=== PATIENT | female | born 1975 | race African-American/Black ===

== ENCOUNTER 2018-05-20 13:54 | Emergency (ER) | payer MEDICAID ==
[~2018-05-20] VITALS: Ht 170.2 cm; Wt 61.4 kg
[2018-05-20 14:07] VITALS: Ht 170.2 cm; Wt 61.4 kg
[2018-05-20] MEDS ORDERED: MEDROL DOSE PACK4 MG PO (14:50)
[2018-05-20 15:01] VITALS: BP 142/92
== END 2018-05-20 15:02 | disposition home or self-care (01) ==
LOC: D.ER 13:54
DX: M25.461 Effusion, right knee (principal)

== ENCOUNTER 2018-12-07 11:06 | Emergency (ER) | payer SELFPAY ==
[~2018-12-07] VITALS: Ht 170.2 cm; Wt 61.4 kg
[~2018-12-07 11:06] MED LIST: MEDROL DOSE PACK4 MG PO
[2018-12-07 12:02] VITALS: Ht 170.2 cm; Wt 61.4 kg
[2018-12-07 12:37] LABS: APPEARANCE CLEAR (CLEAR); BACTERIA MODERATE /hpf (NONE SEEN); BILIRUBIN NEGATIVE (NEGATIVE); COLOR YELLOW (YELLOW); EPITHELIAL CELLS 0-5 /hpf (0-5); GLUCOSE NEGATIVE (NEGATIVE); KETONE NEGATIVE (NEGATIVE); NITRITE NEGATIVE (NEGATIVE); PROTEIN NEGATIVE (NEGATIVE); RED CELLS - URINE 0-5 /hpf (0-5); SPECIFIC GRAVITY 1.015 (1.005-1.020); UROBILINOGEN NORMAL (NORMAL); WHITE CELLS - URINE 0-5 /hpf (0-5)
[2018-12-07 12:38] LABS: MUCUS <1+ /lpf (NONE SEEN)
[2018-12-07] MEDS ORDERED: VOLTAREN75 MG PO (15:10)
[2018-12-07] MEDS ORDERED: ROBAXIN500 MG PO (15:10)
[2018-12-07] MEDS ORDERED: FLAGYL500 MG PO (15:14)
[2018-12-07 15:42] VITALS: BP 110/62
== END 2018-12-07 15:44 | disposition home or self-care (01) ==
LOC: D.ER 11:06
PROVIDERS: Family Medicine
DX: M54.6 Pain in thoracic spine (principal); M62.830 Muscle spasm of back

== ENCOUNTER 2019-02-04 03:54 | Inpatient (IN) | payer MEDICAID ==
[2019-02-04] VITALS (9 sets, daily range): BP systolic 127–155; BP diastolic 87–104; Ht 170.2 cm; Wt 56.8 kg
[~2019-02-04] VITALS: Ht 170.2 cm; Wt 56.8 kg
[~2019-02-04 03:54] MED LIST changes: +FLAGYL500 MG PO; +ROBAXIN500 MG PO; +VOLTAREN75 MG PO
--- NOTE | 2019-02-04 04:45 | NUR ---
RN AND RADIOLOGY TOOK PT TO CT VIA STRETCHER.
[2019-02-04 04:46] LABS: APPEARANCE CLEAR (CLEAR); BILIRUBIN NEGATIVE (NEGATIVE); COLOR YELLOW (YELLOW); GLUCOSE NEGATIVE (NEGATIVE); KETONE NEGATIVE (NEGATIVE); NITRITE NEGATIVE (NEGATIVE); PROTEIN NEGATIVE (NEGATIVE); UROBILINOGEN NORMAL (NORMAL)
[2019-02-04 04:51] LABS: BASOPHILS 0.2 % (0-2); EOSINOPHILS 4.3 % (0-7); HEMATOCRIT 32.5 % (36.0-48.0); HEMOGLOBIN 10.1 g/dL (12-16); IMMATURE GRANULOCYTES 0.2 % (0-5); LYMPHOCYTES 19.9 % (15-50); MCH 28.7 pg (26.0-34.0); MCHC 31.1 g/dL (31.0-37.0); MCV 92.3 fL (80.0-100.0); MEAN PLATELET VOLUME 9.4 fL (7.4-10.4); NEUTROPHILS 58.4 % (40-80); PLATELET COUNT 203 10x3/uL (130-400); RBC 3.52 10x6/uL (4.00-5.40); RDW 14.5 % (11.5-14.5); WBC 4.8 10x3/uL (4.8-10.8)
[2019-02-04 04:54] LABS: UDS - AMPHET NEGATIVE QUAL (NEGATIVE); UDS - BARB NEGATIVE QUAL (NEGATIVE); UDS - BENZO NEGATIVE QUAL (NEGATIVE); UDS - COCAINE NEGATIVE QUAL (NEGATIVE); UDS - OPIATE NEGATIVE QUAL (NEGATIVE); UDS - PCP NEGATIVE QUAL (NEGATIVE); UDS - THC NEGATIVE QUAL (NEGATIVE)
[2019-02-04 05:07] LABS: ALBUMIN 3.7 g/dL (3.4-5.0); ANION GAP 14.6 mmol/L (8-16); BILIRUBIN - TOTAL 0.14 mg/dL (0.2-1.3); CALCIUM 8.2 mg/dL (8.5-10.1); CARBON DIOXIDE 23.4 mmol/L (21.0-32.0); CREATININE - SERUM 0.9 mg/dL (0.6-1.3); MAGNESIUM - SERUM 1.8 mg/dL (1.8-2.4); PROTEIN - SERUM 7.6 g/dL (6.4-8.2)
--- NOTE | 2019-02-04 05:15 | NUR ---
LAC REPAIR PERFORMED BY OJ PAREDES RN AND FAMILY AT BEDSIDE. PT TOLERATED WELL.
--- NOTE | 2019-02-04 05:34 | NUR ---
NS INFUSION STOPPED AND REPLACED WITH ORDER FOR NS KCL PER EDP FINNEGAN.
--- NOTE | 2019-02-04 08:02 | NUR ---
PT RESTING IN BED. NO SIGNS OF DISTRESS. IV TO LEFT AC PATENT NO REDNESS OR TENDERNESS. HAS LACERATION TO LEFT FORHEAD HAD 5 SUTURES. FRACTURE TO LEFT HIP. COMPLAINS OF PAIN. MEDICATIONS GIVEN. AWAITING TO HAVE SURGERY THIS AFTERNOON. HAS CM PATENT NO KINKS. PT HAS SLIGHT SLURRING OF SPEECH. DENIES ANY NEED AT THIS TIME. CALL LIGHT IN REACH. BED LOW POSITION. FAMILY AT BEDSIDE.
[2019-02-04 14:05] LABS: % SATURATION 5 % (15-55); IRON 20 ug/dl (35-150); TOTAL IRON BIND CAPACITY 387 ug/dl (260-445); UNSAT IRON BIND CAPACITY 367 ug/dl (150-375)
--- NOTE | 2019-02-04 16:14 | NUR ---
CONSULTED ANESTHESIA REGARDING ELEVATED BLOOD PRESSURE OF 154/102. NO NEW ORDERS RECEIVED. PATIENT'S BLOOD PRESSURE IS AT BASELINE. WILL CONTINUE TO MONITOR.
--- NOTE | 2019-02-04 17:36 | NUR ---
I have reviewed this patient and I concur with the Shift Assessment completed by the Licensed Practical Nurse today this shift.
[2019-02-05] VITALS: BP 131/79
--- NOTE | 2019-02-05 00:45 | NUR ---
REPORTS PAIN TO LLE 05/05. DRESSING TO LEFT HIP C/D/I. STATES LAST PAIN MED HELPED, BUT WORE OFF. PERIPHERAL PULSES PALPABLE. FAMILY AT BEDSIDE. WILL CONTINUE TO MONITOR.
[2019-02-05 03:00] VITALS: BP 129/86
--- NOTE | 2019-02-05 05:31 | NUR ---
I have reviewed this patient and I concur with the Shift Assessment completed by the Licensed Practical Nurse today this shift.
[2019-02-05 05:43] LABS: BASOPHILS 0 % (0-2); EOSINOPHILS 0 % (0-7); HEMATOCRIT 27.5 % (36.0-48.0); HEMOGLOBIN 9.3 g/dL (12-16); IMMATURE GRANULOCYTES 0.2 % (0-5); LYMPHOCYTES 7.8 % (15-50); MCH 30.6 pg (26.0-34.0); MCHC 33.8 g/dL (31.0-37.0); MCV 90.5 fL (80.0-100.0); MEAN PLATELET VOLUME 9.4 fL (7.4-10.4); PLATELET COUNT 192 10x3/uL (130-400); RBC 3.04 10x6/uL (4.00-5.40); RDW 15.1 % (11.5-14.5)
[2019-02-05 05:54] LABS: CALC OSMOLALITY 273 mosm/kg (275-300); CALCIUM 8.4 mg/dL (8.5-10.1); CARBON DIOXIDE 25.7 mmol/L (21.0-32.0); CHLORIDE - SERUM 103 mmol/L (98-107); CREATININE - SERUM 0.8 mg/dL (0.6-1.3); GLUCOSE 127 mg/dL (74-106); MAGNESIUM - SERUM 1.6 mg/dL (1.8-2.4); SODIUM 137 mmol/L (136-145); UREA NITROGEN 7 mg/dL (7-18); eGFR NON AFRICAN AMERICAN 83 mL/min (90-120)
[2019-02-05 05:56] LABS: WBC 10.3 10x3/uL (4.8-10.8)
[2019-02-05 06:02] LABS: POTASSIUM - SERUM 4.2 mmol/L (3.5-5.1)
--- NOTE | 2019-02-05 07:54 | OP ---
PATIENT NAME: BASILIA LAM MEDICAL RECORD: [id number] :77 LOCATION:D.MS [id number] ADMISSION DATE:02/04/19 SURGEON: BENNIE URIAS DO DATE OF OPERATION: 02/04/2019 PROCEDURE PERFORMED: Left hip intramedullary nailing. PREOPERATIVE DIAGNOSIS: Left hip intertrochanteric fracture. POSTOPERATIVE DIAGNOSIS: Left hip intertrochanteric fracture. INDICATION: Ms. Lam is a 43-year-old female who fell last night sometime and sustained a hip fracture. The patient was taken to the ER. She could not ambulate. Her leg was shortened and externally rotated. X-rays were taken and showed comminuted intertrochanteric left hip fracture and she was admitted. She was intoxicated at that time, and when she sobered up, I decided to do an intertrochanteric hip nailing on her. She will walk right away on it and provide good stability and fracture fixation. I informed her of risks and benefits of the procedure including infection, bleeding, damage to nerves and vessels, need for further surgery, nonunion, malunion; and she was okay with that. SURGEON: Bennie Urias DO DESCRIPTION OF PROCEDURE: The patient was given a block by anesthesia in the preoperative area, taken to the operative suite, laid in supine position, sedated, and LMA was placed. The patient was then placed on the [place] table. Left hip was then reduced and then prepped and draped in sterile fashion. A time-out was performed. Everyone was in agreeance with correct side, site, patient, and procedure. She was given 2 grams of Ancef preoperatively. The starting point was made with incision just superior or proximal to the trochanter. Once the starting pin was put in the correct position, the starting reamer was taken over it. The 9 nail was then put down the canal and the lag screw was put in through the guide. Once the pin was in good position on AP and lateral, it was measured to be an 85 and then drilled and then a 10.5 x 85 lag screw was put in. Then, a 75 antirotational screw was put in above that. This was then locked and then a distal 5.0 x 32-mm cortical screw was put in through the static hole. The sites were then irrigated. The patient was closed; IT band with #1 Vicryl in a evxjda-ng-oncze fashion at the most superior incision and then the rest of the incisions. Three poke holes were closed with 2-0 Vicryl in inverted interrupted fashion, 4-0 Monocryl on the skin, and then Prineo placed on the skin. She was awakened and taken to recovery in stable condition. BLOOD LOSS: Approximately 100 mL. COMPLICATIONS: None. TRANSINT:[id number] Voice Confirmation ID: [id number] DOCUMENT ID: [id number] OPERATIVE REPORT [id number] BASILIA LAM,BENNIE Ma DO at 0754 CC: [id number] DICTATION DATE: 02/04/19 1514 DYE JIG OPERATOR: 02/04/19 1659 ADM IN [facility] [address] [place] [address]
--- NOTE | 2019-02-05 08:30 | NUR ---
PATIENT IN BED WITH NO COMPLAINTS OR SIGNS OF DISTRESS. IV INTACT. CALL LIGHT WITHIN REACH.
[2019-02-05 09:10] VITALS: BP 142/89
[2019-02-05 13:33] VITALS: BP 134/89
--- NOTE | 2019-02-05 14:24 | NUR ---
CALLED DR. URIAS FOR NICOTINE PATCH AND IV OUT. LEFT VOICEMAIL. WILL CALL BACK LATER IF NO ANSWER.
--- NOTE | 2019-02-05 15:30 | NUR ---
SPOKE WITH DR. URIAS. NO NICOTINE PATCH AND OK TO LEAVE IV OUT FOR NOW UNLESS MORE ANTIBIOTICS NEEDED. CHANGE IRON TO PO.
--- NOTE | 2019-02-05 16:34 | MORECARE ---
CASE MANAGEMENT DISCHARGE SUMMARY PATIENT: BASILIA LAM UNIT: [id number] ADM DATE: 02/04/19 AGE: 43 : 76 SEX: F ROOM/BED: D.2227 AUTHOR: KEON FIELDS PHYSICIAN: REFERRING PHYSICIAN: ALMA WEST MD DATE OF SERVICE: 02/05/19 Discharge Plan Patient Name: BASILIA LAM Facility: [facility]:[place] : 1975 Planned Disposition: Home Anticipated Discharge Date: Discharge Date: Expected LOS: Initial Reviewer: [email or web address] Initial Review Date: 02/04/2019 Generated: 02/05/19 5:33 pm Patient Name: BASILIA LAM Page [id number] at 1634 All edits/amendments must be made on the electronic document DICTATION DATE: 02/05/191632 COMMUNICATIONS DEPARTMENT CHAIR: TIFFANIE 02/05/19 163 RPT#: [id number] DC DATE: STATUS: ADM IN [facility] [address] [place] [address] END OF REPORT
--- NOTE | 2019-02-05 16:43 | MORECARE ---
CASE MANAGEMENT DISCHARGE SUMMARY PATIENT: BASILIA LAM UNIT: [id number] ADM DATE: 02/04/19 AGE: 43 : 76 SEX: F ROOM/BED: D.2227 AUTHOR: KEON FIELDS PHYSICIAN: REFERRING PHYSICIAN: ALMA WEST MD DATE OF SERVICE: 02/05/19 Discharge Plan Patient Name: BASILIA LAM Facility: [facility]:[place] : 1975 Planned Disposition: Home Anticipated Discharge Date: Discharge Date: Expected LOS: Initial Reviewer: [email or web address] Initial Review Date: 02/04/2019 Generated: 02/05/19 5:43 pm Comments DCP- Discharge Planning Updated by [email or web address]: Niyah Romo on 02/05/19 3:[address] Patient Name: BASILIA LAM Admission Status: ER Accout number: [id number] Admission Date: 02-04-2019 : 1975 Admission Diagnosis: Attending: ALMA WEST Current LOS: 1 Anticipated DC Date: Planned Disposition: Home Primary Insurance: MEDICAID [place] PENDING Discharge Planning Comments: CM met with patient to complete initial dc planning assessment. CM educated patient on the CM role and verbal consent given by patient to complete assessment. Patient lives at home alone. At discharge patient plans to return and feels this is a safe discharge. She states that her brother will stay with her after discharge and drive her home. CM discussed availability of home health, rehab services, and medical equipment. She is uninsured with Medicaid pending. I informed her that she should get a walker for stability with ambulation. I informed her to have her brother or friend check [employer] or [employer] for a used walker. They can also purchase one at [employer] for about 40 dollars. Patient denied known discharge needs at this time. CM will continue to follow and will assist as needed with dc plans/needs. Computer Recycling Worker: Niyah Romo DCPIA - Discharge Planning Initial Assessment Updated by [email or web address]: Niyah Romo on 02/05/19 4:34 pm * Is the patient Alert and Oriented? Yes * How many steps to enter\exit or inside your home? 10/0 * PCP None * Pharmacy [facility] on [address] * Preadmission Environment Home Alone * ADLs Independent * Equipment None * List name and contact numbers for known caregivers / representatives who currently or will assist patient after discharge: Juan Deng - - [phone] * Verbal permission to speak to the caregivers and representatives has been obtained from the patient. Yes * Community resources currently utilized None * Additional services required to return to the preadmission environment? No * Can the patient safely return to the preadmission environment? Yes * Has this patient been hospitalized within the prior 30 days at any hospital? No Last DP export: 02/05/19 3:34 p Patient Name: BASILIA LAM Page [id number] at 1643 All edits/amendments must be made on the electronic document DICTATION DATE: 02/05/191642 FULL STACK JAVA DEVELOPER: TIFFANIE 02/05/191642 RPT#: [id number] DC DATE: STATUS: ADM IN [facility] [address] [place] [address] END OF REPORT
[2019-02-05 16:49] VITALS: BP 135/93
--- NOTE | 2019-02-05 17:46 | NUR ---
PATIENT IN BED EATING WITH NO COMPLAINTS AT THIS TIME. CALL LIGHT WITHIN REACH.
[2019-02-05 18:00] VITALS: BP 136/87
[2019-02-06 01:06] VITALS: BP 117/88
--- NOTE | 2019-02-06 03:47 | NUR ---
RESTING ON LEFT SIDE RESPRATIONS EVEN NAD UNLABORED CALL LIGHT IN REACH.
[2019-02-06 05:07] LABS: BASOPHILS 0.1 % (0-2); EOSINOPHILS 0.5 % (0-7); HEMATOCRIT 26.9 % (36.0-48.0); HEMOGLOBIN 9.1 g/dL (12-16); IMMATURE GRANULOCYTES 0.3 % (0-5); LYMPHOCYTES 17.6 % (15-50); MCH 30.5 pg (26.0-34.0); MCHC 33.8 g/dL (31.0-37.0); MCV 90.3 fL (80.0-100.0); MEAN PLATELET VOLUME 9.2 fL (7.4-10.4); MONOCYTES 9.4 % (2-11); NEUTROPHILS 72.1 % (40-80); PLATELET COUNT 186 10x3/uL (130-400); RBC 2.98 10x6/uL (4.00-5.40); RDW 15.1 % (11.5-14.5)
[2019-02-06 05:16] LABS: WBC 7.4 10x3/uL (4.8-10.8)
[2019-02-06 05:22] LABS: CALCIUM 8.4 mg/dL (8.5-10.1); CHLORIDE - SERUM 103 mmol/L (98-107); CREATININE - SERUM 0.7 mg/dL (0.6-1.3); GLUCOSE 96 mg/dL (74-106); MAGNESIUM - SERUM 1.9 mg/dL (1.8-2.4); SODIUM 138 mmol/L (136-145); eGFR NON AFRICAN AMERICAN > 90 mL/min (90-120)
[2019-02-06 05:25] LABS: CALC OSMOLALITY 272 mosm/kg (275-300); POTASSIUM - SERUM 3.4 mmol/L (3.5-5.1); UREA NITROGEN 5 mg/dL (7-18)
[2019-02-06 05:56] VITALS: BP 117/89
--- NOTE | 2019-02-06 08:00 | NUR ---
PATIENT IN BED WITH NO COMPLAINTS OR SIGNS OF DISTRESS. CM INTACT. FAMILY AT BEDSIDE. CALL LIGHT WITHIN REACH.
[2019-02-06 09:13] VITALS: BP 146/83
[2019-02-06 10:16] LABS: FOLATE (FOLIC ACID) - SERUM 9.1 ng/mL (>3.0)
[2019-02-06 12:00] VITALS: BP 104/65
--- NOTE | 2019-02-06 14:15 | NUR ---
SPOKE WITH YAEL FROM PT ABOUT PATIENT GETTING UP AGAIN. EXPLAINED I GAVE HER MORE PAIN MEDS SO SHE WILL BE READY. STATED HE WOULD GET HER UP.
--- NOTE | 2019-02-06 16:30 | NUR ---
PATIENT CM REMOVED AT THIS TIME.
--- NOTE | 2019-02-06 18:37 | NUR ---
PATIENT IN BED WITH NO COMPLAINTS OR SIGNS OF DISTRESS. BSCDS OFF AT THIS TIME. CALL LIGHT WITHIN REACH.
[2019-02-06 21:14] VITALS: BP 107/72
[2019-02-07 01:40] VITALS: BP 117/81
[2019-02-07 05:02] VITALS: BP 124/74
[2019-02-07 06:32] LABS: BASOPHILS 0 % (0-2); EOSINOPHILS 1.5 % (0-7); HEMATOCRIT 27.8 % (36.0-48.0); HEMOGLOBIN 9.4 g/dL (12-16); IMMATURE GRANULOCYTES 0.2 % (0-5); LYMPHOCYTES 27.2 % (15-50); MCH 30.3 pg (26.0-34.0); MCHC 33.8 g/dL (31.0-37.0); MCV 89.7 fL (80.0-100.0); MEAN PLATELET VOLUME 8.8 fL (7.4-10.4); MONOCYTES 10.9 % (2-11); NEUTROPHILS 60.2 % (40-80); PLATELET COUNT 176 10x3/uL (130-400); RDW 15.1 % (11.5-14.5); WBC 6.1 10x3/uL (4.8-10.8)
[2019-02-07 07:12] LABS: CALC OSMOLALITY 269 mosm/kg (275-300); CALCIUM 8.8 mg/dL (8.5-10.1); CARBON DIOXIDE 26.8 mmol/L (21.0-32.0); CHLORIDE - SERUM 102 mmol/L (98-107); CREATININE - SERUM 0.7 mg/dL (0.6-1.3); GLUCOSE 92 mg/dL (74-106); POTASSIUM - SERUM 3.8 mmol/L (3.5-5.1); SODIUM 136 mmol/L (136-145); UREA NITROGEN 6 mg/dL (7-18); eGFR NON AFRICAN AMERICAN > 90 mL/min (90-120)
--- NOTE | 2019-02-07 07:54 | NUR ---
PT C/O PAIN AT A 9 IN HIPS. ADMINISTERED PRN PAIN MEDICATION WITH MORNING MEDS. CONTINUE WITH PLAN OF CARE
[2019-02-07 08:53] VITALS: BP 132/66
[2019-02-07] MEDS ORDERED: ELIQUIS2.5 MG PO (10:30)
[2019-02-07] MEDS ORDERED: FERROUS SULFAT325 MG PO (10:31)
[2019-02-07] MEDS ORDERED: PROTONIX40 MG PO (10:31)
[2019-02-07] MEDS ORDERED: Senokot-S Tablet PO (10:32)
--- NOTE | 2019-02-07 10:41 | NUR ---
PT UP WITH PT TO DOOR AND BACK, CHANGED PT DRESING. PT STATED SHE IS MORE SORE THAN IN PAIN, NO NEEDS VOICED, BED IN LOWEST POSITION CONTINUE WITH PLAN OF CARE
[2019-02-07 12:00] VITALS: BP 108/84
--- NOTE | 2019-02-07 12:03 | MORECARE ---
CASE MANAGEMENT DISCHARGE SUMMARY PATIENT: BASILIA LAM UNIT: [id number] ADM DATE: 02/04/19 AGE: 43 : 77 SEX: F ROOM/BED: D.2227 AUTHOR: KEON FIELDS PHYSICIAN: REFERRING PHYSICIAN: ALMA WEST MD DATE OF SERVICE: 02/07/19 Discharge Plan Patient Name: BASILIA LAM Facility: [facility]:[place] : 1975 Planned Disposition: Home Anticipated Discharge Date: Discharge Date: Expected LOS: Initial Reviewer: [email or web address] Initial Review Date: 02/04/2019 Generated: 02/07/19 1:02 pm Comments DCP- Discharge Planning Updated by [email or web address]: Niyah Romo on 02/07/19 11:[address] Discharge order received. I asked if she has a walker. She is going to call her brother to get her one. I will check back with her to see if she has gotten her walker. She denies other needs. CM will continue to follow and assist with discharge planning/needs. DCP- Discharge Planning Updated by [email or web address]: Niyah Romo on 02/05/19 3:[address] Patient Name: BASILIA LAM Admission Status: ER Accout number: [id number] Admission Date: 02-04-2019 : 1975 Admission Diagnosis: Attending: ALMA WEST Current LOS: 1 Anticipated DC Date: Planned Disposition: Home Primary Insurance: MEDICAID [place] PENDING Discharge Planning Comments: CM met with patient to complete initial dc planning assessment. CM educated patient on the CM role and verbal consent given by patient to complete assessment. Patient lives at home alone. At discharge patient plans to return and feels this is a safe discharge. She states that her brother will stay with her after discharge and drive her home. CM discussed availability of home health, rehab services, and medical equipment. She is uninsured with Medicaid pending. I informed her that she should get a walker for stability with ambulation. I informed her to have her brother or friend check [employer] or [employer] for a used walker. They can also purchase one at [employer] for about 40 dollars. Patient denied known discharge needs at this time. CM will continue to follow and will assist as needed with dc plans/needs. Human Resources District Manager: Niyah Romo DCPIA - Discharge Planning Initial Assessment Updated by [email or web address]: Niyah Romo on 02/05/19 4:34 pm * Is the patient Alert and Oriented? Yes * How many steps to enter\exit or inside your home? 10/0 * PCP None * Pharmacy [facility] [address] [facility] [address] * Preadmission Environment Home Alone * ADLs Independent * Equipment None * List name and contact numbers for known caregivers / representatives who currently or will assist patient after discharge: Juan Deng [facility] - [phone] * Verbal permission to speak to the caregivers and representatives has been obtained from the patient. Yes * Community resources currently utilized None * Additional services required to return to the preadmission environment? No * Can the patient safely return to the preadmission environment? Yes * Has this patient been hospitalized within the prior 30 days at any hospital? No Last DP export: 02/05/19 3:43 p Patient Name: BASILIA LAM Page [phone] at 1203 All edits/amendments must be made on the electronic document DICTATION DATE: 02/07/191201 TARIFF PUBLISHING AGENT: TIFFANIE 02/07/191201 RPT#: [id number] DC DATE: STATUS: ADM IN [facility] [address] [place] [address] END OF REPORT
[2019-02-07] MEDS ORDERED: VISTARIL50 MG PO ×2 (13:14→14:02)
[2019-02-07] MEDS ORDERED: OXYCODONE HCL5 M1 PO ×2 (13:14→14:03)
--- NOTE | 2019-02-07 14:13 | NUR ---
PT UP AT BEDSIDE. PT IS TO DC HOME. FAMILY AT BEDSIDE
--- NOTE | 2019-02-07 14:18 | MORECARE ---
CASE MANAGEMENT DISCHARGE SUMMARY PATIENT: BASILIA LAM UNIT: [id number] ADM DATE: 02/04/19 AGE: 43 : 77 SEX: F ROOM/BED: D.2227 AUTHOR: KEON FIELDS PHYSICIAN: REFERRING PHYSICIAN: ALMA WEST MD DATE OF SERVICE: 02/07/19 Discharge Plan Patient Name: BASILIA LAM Facility: [facility]:[place] : 1975 Planned Disposition: Home Anticipated Discharge Date: Discharge Date: Expected LOS: Initial Reviewer: [email or web address] Initial Review Date: 02/04/2019 Generated: 02/07/19 3:18 pm Comments DCP- Discharge Planning Updated by [email or web address]: Niyah Romo on 02/07/19 1:[address] Family is here and have brought her walker. CM will continue to follow and assist with discharge planning/needs. DCP- Discharge Planning Updated by [email or web address]: Niyah Romo on 02/07/19 11:[address] Discharge order received. I asked if she has a walker. She is going to call her brother to get her one. I will check back with her to see if she has gotten her walker. She denies other needs. CM will continue to follow and assist with discharge planning/needs. DCP- Discharge Planning Updated by [email or web address]: Niyah Romo on 02/05/19 3:[address] Patient Name: BASILIA LAM Admission Status: ER Accout number: [id number] Admission Date: 02-04-2019 : 1975 Admission Diagnosis: Attending: ALMA WEST Current LOS: 1 Anticipated DC Date: Planned Disposition: Home Primary Insurance: MEDICAID [place] PENDING Discharge Planning Comments: CM met with patient to complete initial dc planning assessment. CM educated patient on the CM role and verbal consent given by patient to complete assessment. Patient lives at home alone. At discharge patient plans to return and feels this is a safe discharge. She states that her brother will stay with her after discharge and drive her home. CM discussed availability of home health, rehab services, and medical equipment. She is uninsured with Medicaid pending. I informed her that she should get a walker for stability with ambulation. I informed her to have her brother or friend check [facility] for [employer] or [employer] for a used walker. They can also purchase one [facility] dollars. Patient denied known discharge needs at this time. CM will continue to follow and will assist as needed with dc plans/needs. Telemetry Nurse: Niyah Romo DCPIA - Discharge Planning Initial Assessment Updated by [id number]: Niyah Clarissa on 02/05/19 4:34 pm * Is the patient Alert and Oriented? Yes * How many steps to enter\exit or inside your home? 100 * PCP None * Pharmacy [facility] [address] * Preadmission Environment Home Alone * ADLs Independent * Equipment None * List name and contact numbers for known caregivers / representatives who currently or will assist patient after discharge: Juan do - [phone] * Verbal permission to speak to the caregivers and representatives has been obtained from the patient. Yes * Community resources currently utilized None * Additional services required to return to the preadmission environment? No * Can the patient safely return to the preadmission environment? Yes * Has this patient been hospitalized within the prior 30 days at any hospital? No Last DP export: 02/07/19 11:02 a Patient Name: BASILIA LAM Page [phone] at 1418 All edits/amendments must be made on the electronic document DICTATION DATE: 02/07/191416 BAG MACHINE HELPER: TIFFANIE 02/07/191416 RPT#: [id number] DC DATE: STATUS: ADM IN [facility] [address] [place] [address] END OF REPORT
== END 2019-02-07 15:24 | disposition home or self-care (01) | DRG 481 ==
LOC: D.ER 03:54 → D.MS 04:17
PROVIDERS: Family Medicine; Orthopaedic Surgery; ADMIT Internal Medicine Nephrology; ATTEND Internal Medicine Nephrology
PROC: 0QH706Z Insertion of Intramedullary Internal Fixation Device into Left Upper Femur, Open Approach (ICD-10-PCS; principal; 2019-02-04 13:30)
DX: S72.142A Displaced intertrochanteric fracture of left femur, initial encounter for closed fracture (principal); F17.213 Nicotine dependence, cigarettes, with withdrawal; W19.XXXA Unspecified fall, initial encounter; F10.229 Alcohol dependence with intoxication, unspecified; E87.6 Hypokalemia; D64.9 Anemia, unspecified

== ENCOUNTER 2019-03-17 03:34 | Inpatient (IN) | payer MEDICAID ==
[2019-03-17] VITALS (8 sets, daily range): BP systolic 108–130; BP diastolic 70–88; BMI 20.4
[~2019-03-17] VITALS: Ht 170.2 cm; Wt 59.0 kg
[~2019-03-17 03:34] MED LIST changes: +ELIQUIS2.5 MG PO; +FERROUS SULFAT325 MG PO; +OXYCODONE HCL5 M1 PO; +PROTONIX40 MG PO; +Senokot-S Tablet PO; +VISTARIL50 MG PO
--- NOTE | 2019-03-17 03:45 | NUR ---
PT AMBULATED TO RESTROOM USING WALKER.
[2019-03-17 04:04] LABS: BASOPHILS 0.1 % (0-2); EOSINOPHILS 1.6 % (0-7); HEMATOCRIT 31.1 % (36.0-48.0); HEMOGLOBIN 10.8 g/dL (12-16); IMMATURE GRANULOCYTES 0.1 % (0-5); LYMPHOCYTES 25.5 % (15-50); MCHC 34.7 g/dL (31.0-37.0); MCV 89.4 fL (80.0-100.0); MEAN PLATELET VOLUME 9.3 fL (7.4-10.4); MONOCYTES 8.4 % (2-11); NEUTROPHILS 64.3 % (40-80); PLATELET COUNT 189 10x3/uL (130-400); RBC 3.48 10x6/uL (4.00-5.40); RDW 14.9 % (11.5-14.5); WBC 6.9 10x3/uL (4.8-10.8)
[2019-03-17 04:09] LABS: HCG URINE NEGATIVE (NEGATIVE)
[2019-03-17 04:10] LABS: APPEARANCE CLOUDY (CLEAR); BILIRUBIN NEGATIVE (NEGATIVE); COLOR YELLOW (YELLOW); GLUCOSE NEGATIVE (NEGATIVE); KETONE NEGATIVE (NEGATIVE); NITRITE NEGATIVE (NEGATIVE); PROTEIN TRACE mg/dL (NEGATIVE); SPECIFIC GRAVITY 1.025 (1.005-1.020); UROBILINOGEN NORMAL (NORMAL)
[2019-03-17 04:11] LABS: BACTERIA MODERATE /hpf (NONE SEEN); EPITHELIAL CELLS RARE /hpf (0-5); RED CELLS - URINE 0-5 /hpf (0-5)
--- NOTE | 2019-03-17 04:17 | NUR ---
PT GIVEN BLANKET, DENIES ANY FURTHER NEEDS AT THIS TIME. WILL CONTINUE TO MONITOR.
[2019-03-17 04:20] LABS: ALBUMIN 3.6 g/dL (3.4-5.0); ALKALINE PHOSPHATASE 93 U/L (46-116); ALT (SGPT) 14 U/L (10-68); BILIRUBIN - TOTAL 0.48 mg/dL (0.2-1.3); CALC OSMOLALITY 275 mosm/kg (275-300); CALCIUM 8.9 mg/dL (8.5-10.1); CARBON DIOXIDE 27.2 mmol/L (21.0-32.0); CHLORIDE - SERUM 103 mmol/L (98-107); CREATININE - SERUM 0.8 mg/dL (0.6-1.3); GLUCOSE 100 mg/dL (74-106); POTASSIUM - SERUM 3.5 mmol/L (3.5-5.1); PROTEIN - SERUM 8.1 g/dL (6.4-8.2); SODIUM 139 mmol/L (136-145); UREA NITROGEN 8 mg/dL (7-18); eGFR NON AFRICAN AMERICAN 83 mL/min (90-120)
[2019-03-17 04:26] LABS: UDS - AMPHET NEGATIVE QUAL (NEGATIVE); UDS - BARB NEGATIVE QUAL (NEGATIVE); UDS - BENZO NEGATIVE QUAL (NEGATIVE); UDS - COCAINE NEGATIVE QUAL (NEGATIVE); UDS - OPIATE NEGATIVE QUAL (NEGATIVE); UDS - PCP NEGATIVE QUAL (NEGATIVE); UDS - THC NEGATIVE QUAL (NEGATIVE)
--- NOTE | 2019-03-17 05:34 | NUR ---
PT TO RADIOLOGY.
--- NOTE | 2019-03-17 05:49 | NUR ---
PT RETURNED FROM RADIOLOGY.
--- NOTE | 2019-03-17 07:00 | NUR ---
PT WEIGHT 121.[address] DELEON.
--- NOTE | 2019-03-17 09:18 | NUR ---
NEW ADMIT FROM ER. BECKFORD TO ROOM. CALL LIGHT IN REACJ. WILL CONT. PLAN OF CARE.
--- NOTE | 2019-03-17 09:37 | NUR ---
PT ARRIVED VIA WHEELCHAIR, UP AD ALBERTO. PT IS PLESANT, NO REPORTED PAIN AT THIS TIME, OR SIGNS/SYMPTOMS OF DISTRESS. PT IS ALERT/ORIENTED. NO QUESTIONS/CONCERNS AT THIS TIME, WANTS TO SPEAK WITH DR BUT UNDERSTNADS IT MAY BE A WHILE. CL IN REACH, SRX2.
--- NOTE | 2019-03-17 19:39 | NUR ---
EVENING ROUNDS COMPLETED. REPORT RECEIVED. PT SITTING UP IN BED WITH EYES OPEN, RR EVEN AND UNLABORED. NO S/S OF DISTRESS NOTED. INTRODUCED SELF TO PT. PT REQUESTS TO HAVE SOMETHING TO DRINK. PROVIDED PT WITH DRINK IN ACCORDANCE WITH PT DIET. PT DENIES FURTHER NEEDS AT THIS TIME. BED IN LOW POSITION. CALL LIGHT IN REACH. WILL CTM.
--- NOTE | 2019-03-17 20:36 | NUR ---
ADMINISTERED ORDERED ANALGESIC FOR PT COMPLAINTS OF PAIN IN RIGHT SIDE NEAR RIB CAGE. PT STATES PAIN OF A 7 ON A SCALE OF 0-10. WILL CTM.
--- NOTE | 2019-03-17 23:36 | NUR ---
ADMINISTERED ORDERED ANALGESIC FOR PT COMPLAINTS OF PAIN IN RIGHT LOWER ABDOMEN. PT STATES PAIN OF A 7 ON A SCALE OF 0-10. PT ALSO STATES HAVING HAD STITCHES PLACED ON THE LEFT SIDE OF HER FOREHEAD AFTER SUFFERING A FALL. WOUND APPEARS TO BE FREE OF BLEEDING OR DRAINAGE. WILL NOTIFY ONCOMING NURSE PT REQUESTS TO HAVE THESE STITCHES REMOVED.
[2019-03-18] VITALS: BP 106/71
--- NOTE | 2019-03-18 03:23 | NUR ---
ADMINISTERED ORDERED ANALGESIC FOR PT COMPLAINTS OF PAIN IN RIGHT SIDE, PT STATES PAIN OF AN 8 ON A SCALE OF 0-10.
[2019-03-18 04:00] VITALS: BP 115/75
--- NOTE | 2019-03-18 05:51 | NUR ---
PT SITTING UP IN BED WITH EYES OPEN, RR EVEN AND UNLABORED. NO S/S OF DISTRESS NOTED. ADMINISTERED ORDERED ANALGESIC FOR PT COMPLAINTS OF PAIN. PT DENIES FURTHER NEEDS AT THIS TIME. CALL LIGHT IN REACH. WILL CTM.
--- NOTE | 2019-03-18 07:06 | NUR ---
PT IS AWAKE AND ORIENTED, VISITOR AT [facility]. CALLED INTO PTS ROOM, SHE IS SITTING SEMI FOWLERS IN BED CLUTCHING RIGHT ABD/FLANK AREA. SHE IS CRYING FROM PAIN SHE SAYS HAS BEEN GETTING WORSE ALL NIGHT. PT HAS JUST HAD PER PAIN PILLS, CALLED JASON MCKEON FOR FURTHER GUIDENCE. PT IS ROCKING BACK AND FORTH IN AN EFFORT TO CONTROL THE PAIN.
[2019-03-18 07:46] VITALS: BP 126/82
--- NOTE | 2019-03-18 10:01 | NUR ---
I have reviewed this patient and I concur with the Shift Assessment completed by the Licensed Practical Nurse today this shift.
--- NOTE | 2019-03-18 10:32 | NUR ---
PTS PAIN HAS BEEN BETTER SINCE RECIEVING THE DILAUDID THIS MORNING. PT REQUESTS WE RESITE I/V TO A MORE CONVIENT LOCATION, WILL ACCOMIDATE GIVEN THAT WE HAVE TIME TO DO SO TODAY. CL IN REACH, SRX2.
--- NOTE | 2019-03-18 10:58 | NUR ---
I/V RESITED TO PTS LFA, PER REQUEST OF PTAkshat RAMIREZ I/V DC'D
[2019-03-18 11:46] VITALS: BP 124/88
--- NOTE | 2019-03-18 13:55 | NUR ---
PT STILL HAVING SOME PAIN, REQUESTED MEDICATION ABOUT AN HOUR AGO FOR IT. SHE STATES THE DILAUDID HELPS FOR A LONG TIME AND SHE'S VERY GREATFUL. AT [facility]. THEY HAVE NO COMPLAINTS/COMMENTS/QUESTIONS OR CONCERNS TO VOICE AT THIS TIME. CL IN REACH, SRX2.
--- NOTE | 2019-03-18 14:14 | NUR ---
PT STATES SHE FEELS VERY COUPED UP AND SHE WANTS TO TAKE A STROLL. DAUGHTER IS PUSHING HER AROUND THE HALLS IN A WHEELCHAIR, THEY UNDERSTAND NOT TO GO OUTSIDE.
[2019-03-18 15:21] VITALS: BP 132/87
--- NOTE | 2019-03-18 17:28 | NUR ---
PT IS ONCE AGAIN EXPEIRENCING EXTREEM RIGHT FLANK PAIN. I HAVE NOTICED A PATEREN WITH THIS PAIN, IT SHOWS UP EVERYTIME SHE EATS, ROUGHLY 10 MINUTES LATER. SHE FIRST EXPIERENCED IT THIS MORNING AFTER EATING SOME FAST FOOD HER BOYFRIEND BROUGHT IN, THEN AGAIN AFTER LUNCH AND AGAIN AFTER SUPPER. WILL BRING TO THE DRS ATTENTION. OTHER THAN THE PAIN SHE HAS NO COMPLAINTS AT THIS TIME, CL IN REACH, SRX2.
--- NOTE | 2019-03-18 19:00 | NUR ---
EVENING ROUNDS COMPLETED. REPORT RECEIVED. PT SITTING UP IN BED WITH EYES OPEN, RR EVEN AND UNLABORED. NO S/S OF DISTRESS NOTED. INTRODUCED SELF TO PT. PT DENIES FURTHER NEEDS AT THIS TIME. BED IN LOW POSITION. CALL LIGHT IN REACH. WILL CTM.
[2019-03-18 20:00] VITALS: BP 133/86
[2019-03-19 00:11] VITALS: BP 136/86
--- NOTE | 2019-03-19 03:29 | NUR ---
I have reviewed this patient and I concur with the Shift Assessment completed by the Licensed Practical Nurse today this shift.
[2019-03-19 04:00] VITALS: BP 128/53
--- NOTE | 2019-03-19 06:22 | NUR ---
ADMINISTERED ORDERED ANALGESIC FOR COMPLAINTS OF PAIN IN RIGHT SIDE OF CHEST BELOW BREAST. CALL LIGHT IN REACH. WILL CTM.
[2019-03-19 06:25] LABS: BASOPHILS 0 % (0-2); HEMATOCRIT 29.3 % (36.0-48.0); HEMOGLOBIN 9.9 g/dL (12-16); IMMATURE GRANULOCYTES 0.1 % (0-5); LYMPHOCYTES 15.8 % (15-50); MCH 30.4 pg (26.0-34.0); MCHC 33.8 g/dL (31.0-37.0); MCV 89.9 fL (80.0-100.0); MEAN PLATELET VOLUME 9.3 fL (7.4-10.4); MONOCYTES 10.5 % (2-11); NEUTROPHILS 72.6 % (40-80); PLATELET COUNT 211 10x3/uL (130-400); RBC 3.26 10x6/uL (4.00-5.40); RDW 14.8 % (11.5-14.5); WBC 7.3 10x3/uL (4.8-10.8)
[2019-03-19 06:35] LABS: CALC OSMOLALITY 270 mosm/kg (275-300); CALCIUM 8.8 mg/dL (8.5-10.1); CARBON DIOXIDE 27.7 mmol/L (21.0-32.0); CHLORIDE - SERUM 100 mmol/L (98-107); CREATININE - SERUM 0.8 mg/dL (0.6-1.3); GLUCOSE 121 mg/dL (74-106); POTASSIUM - SERUM 3.5 mmol/L (3.5-5.1); SODIUM 136 mmol/L (136-145); UREA NITROGEN 6 mg/dL (7-18); eGFR NON AFRICAN AMERICAN 83 mL/min (90-120)
--- NOTE | 2019-03-19 07:21 | NUR ---
PT AWAKE AND ORIENTED, STATES SHE HAD A ROUGH NIGHT LAS NIGHT AND HAD TO ASK FOR PAIN MEDICATIONS TWICE. PT STATES SHE'S STILL FEELING BAD THIS MORNING, BUT NOT BAD LAST NIGHT. FRIEND AT BEDSIDE. NO OTHER COMPLAINTS/CONCERNS AT THIS TIME. CL IN REACH, SRX2.
[2019-03-19 09:01] VITALS: BP 114/81
[2019-03-19 11:41] VITALS: BP 137/95
[2019-03-19 13:58] VITALS: Ht 170.2 cm; Wt 59.0 kg
--- NOTE | 2019-03-19 16:00 | NUR ---
I have reviewed this patient and I concur with the Shift Assessment completed by the Licensed Practical Nurse today this shift.
--- NOTE | 2019-03-19 18:35 | NUR ---
PT STILL NPO FOR ULTRA SOUND. CALLED ULTRASOUND TO CHECK WHEN IT WOULD BE AND THEY'RE UNSURE. PT IS UPSET BUT UNDERSTANDS. CL IN REACH, SRX2. NO FAMILY AT BEDSIDE AT THIS TIME.
[2019-03-19 18:48] VITALS: BP 119/78
--- NOTE | 2019-03-19 19:26 | NUR ---
PT SITTING UP IN BED WATCHING TV. CALL LIGHT IN REACH. DENIES NEEDS AT THIS TIME. BED IN LOW SIDE RAILS X2. RESP EVEN AND UNLABORED. A/O X4. WCTM
[2019-03-19 20:00] VITALS: BP 127/88
--- NOTE | 2019-03-19 22:50 | NUR ---
TOOK OUT PT'S STITCHES ORDERED. A SMALL AMOUNT OF WHITE PUS UNDER HARD SCAB, CLEAN THE PUS WITH ANTISEPTIC SOLUTION. PT REFUSED TO TAKE THE REST OF STITCHES.
[2019-03-20] VITALS: BP 114/76
--- NOTE | 2019-03-20 00:38 | NUR ---
I have reviewed this patient and I concur with the Shift Assessment completed by the Licensed Practical Nurse today this shift.
--- NOTE | 2019-03-20 03:45 | NUR ---
REST IN BED. CALL LIGHT IN REACH.
[2019-03-20 04:00] VITALS: BP 122/78
[2019-03-20 06:38] LABS: BASOPHILS 0 % (0-2); HEMATOCRIT 28.2 % (36.0-48.0); HEMOGLOBIN 9.6 g/dL (12-16); IMMATURE GRANULOCYTES 0.1 % (0-5); MCH 30.3 pg (26.0-34.0); MEAN PLATELET VOLUME 9.3 fL (7.4-10.4); MONOCYTES 11.1 % (2-11); NEUTROPHILS 73.8 % (40-80); PLATELET COUNT 217 10x3/uL (130-400); RBC 3.17 10x6/uL (4.00-5.40); RDW 14.7 % (11.5-14.5); WBC 7.9 10x3/uL (4.8-10.8)
[2019-03-20 06:50] LABS: CALC OSMOLALITY 268 mosm/kg (275-300); CALCIUM 8.6 mg/dL (8.5-10.1); CARBON DIOXIDE 29.3 mmol/L (21.0-32.0); CHLORIDE - SERUM 101 mmol/L (98-107); CREATININE - SERUM 0.7 mg/dL (0.6-1.3); GLUCOSE 96 mg/dL (74-106); POTASSIUM - SERUM 3.3 mmol/L (3.5-5.1); SODIUM 136 mmol/L (136-145); UREA NITROGEN 5 mg/dL (7-18); eGFR NON AFRICAN AMERICAN > 90 mL/min (90-120)
--- NOTE | 2019-03-20 07:05 | NUR ---
[facility] ALERT DENIES ANY NEEDS AT THIS TIME. FAMILY ASLEEP AT BEDSIDE. RESP EVEN WITHOUT LABOR. LEFT FOREARM SALINE LOCK INTACT. CL IN REACH.
[2019-03-20 08:37] VITALS: BP 107/67; BP 189/86
--- NOTE | 2019-03-20 08:40 | NUR ---
AM MEDS GAVE. SHE HAD C/O PAIN IN ABDOMEN AT TOP RIGHT SIDE. PAIN MED GIVEN AT THIS TIME. SHE TAKES PILLS AND FLUIDS WITHOUT DIFFICULTY. PO FLUIDS TAKEN WELL. SHE DENIES ANY N/V. CL IN REACH. FAMILY ASLEEP AT BEDSIDE.
--- NOTE | 2019-03-20 10:15 | NUR ---
UP IN SHOWER AT THIS TIME.
--- NOTE | 2019-03-20 12:05 | NUR ---
PO MED AND IVABT STARTED AT THIS TIME. SALINE LOCK FLUSHED WITHOUT DIFF. DENIES ANY CURRENT NEEDS. SCD'S ARE ON. BED IN LOWEST POSITION AND NON-SKID SOCKS ARE ON. RESP EVEN WITHOUT LABOR CL IN REACH.
--- NOTE | 2019-03-20 13:30 | NUR ---
SALINE LOCK FLUSHED AT THIS TIME DUE TO IVABT COMPLETE. NO C/O VOICED. CONTINUE CURRENT PLAN OF CARE AND MONITOR. SHE DENIES ANY CURRENT NEEDS. RESP EVEN WITHOUT LABOR.
--- NOTE | 2019-03-20 16:10 | NUR ---
ALERT TAKING ORAL FLUIDS WELL. RESP EVEN WITHOUT LABOR NO CHANGE IN RESP STATUS. CONTINUE CURRENT POC AND MONITOR.
--- NOTE | 2019-03-20 18:10 | NUR ---
C/O PAIN. PAIN MED WAS GIVEN. NO OTHER NEEDS VOICED. RESP EVEN WITHOUT LABOR. CL IN REACH.
[2019-03-20 18:31] VITALS: BP 102/69
[2019-03-20 18:36] VITALS: BP 90/61
--- NOTE | 2019-03-20 19:07 | NUR ---
PT IN BED. DENIES NEEDS AT THIS TIME.
[2019-03-20 20:00] VITALS: BP 131/81
[2019-03-21] VITALS: BP 104/68
[2019-03-21 04:00] VITALS: BP 134/76
[2019-03-21 05:41] LABS: BASOPHILS 0 % (0-2); EOSINOPHILS 1.1 % (0-7); HEMATOCRIT 27.9 % (36.0-48.0); HEMOGLOBIN 9.5 g/dL (12-16); IMMATURE GRANULOCYTES 0.2 % (0-5); LYMPHOCYTES 21.6 % (15-50); MCH 30.7 pg (26.0-34.0); MCHC 34.1 g/dL (31.0-37.0); MCV 90.3 fL (80.0-100.0); MEAN PLATELET VOLUME 9.1 fL (7.4-10.4); MONOCYTES 14.2 % (2-11); NEUTROPHILS 62.9 % (40-80); PLATELET COUNT 232 10x3/uL (130-400); RBC 3.09 10x6/uL (4.00-5.40); RDW 14.8 % (11.5-14.5)
[2019-03-21 05:55] LABS: WBC 5.6 10x3/uL (4.8-10.8)
[2019-03-21 06:06] LABS: CALC OSMOLALITY 272 mosm/kg (275-300); CALCIUM 8.6 mg/dL (8.5-10.1); CARBON DIOXIDE 30.3 mmol/L (21.0-32.0); CHLORIDE - SERUM 102 mmol/L (98-107); CREATININE - SERUM 0.8 mg/dL (0.6-1.3); GLUCOSE 96 mg/dL (74-106); POTASSIUM - SERUM 3.8 mmol/L (3.5-5.1); SODIUM 138 mmol/L (136-145); UREA NITROGEN 5 mg/dL (7-18); eGFR NON AFRICAN AMERICAN 83 mL/min (90-120)
--- NOTE | 2019-03-21 07:10 | NUR ---
REPORT RECEVIED FROM LADLE FILLER AND PATIENT CARE ASSUMED. PATIENT LAYING IN BED WITH EYES CLOSED AND BREATHING EVENLY. PATIENT IS STABLE AND VSS. WILL CONTINUE WITH PLAN OF CARE. SR UP X 2 BED IN LOW POSITION AND CALL LIGHT IN REACH.
[2019-03-21 09:47] VITALS: BP 118/72
--- NOTE | 2019-03-21 12:50 | MORECARE ---
CASE MANAGEMENT DISCHARGE SUMMARY PATIENT: BASILIA LAM UNIT: [id number] ADM DATE: 03/18/19 AGE: 43 : 77 SEX: F ROOM/BED: D.1861 AUTHOR: KEON FIELDS PHYSICIAN: REFERRING PHYSICIAN: ALMA WEST MD DATE OF SERVICE: 03/21/19 Discharge Plan Patient Name: BASILIA LAM Facility: [facility]:[place] : 1975 Planned Disposition: Home Anticipated Discharge Date: Discharge Date: Expected LOS: Initial Reviewer: [id number] Initial Review Date: 03/17/2019 Generated: 03/21/19 1:50 pm Comments DCP- Discharge Planning Updated by [id number]: Shweta Blank on 03/21/19 9:[address] CM VISITED THE BEDSIDE TO INITIATE DISCHARGE PLANNING ASSESSMENT. THE PATIENT WAS NOT PRESENT IN HER ROOM. CM WILL REVISIT. THE INTERVENTIONAL RADIOLOGY TECHNOLOGIST STATED SHE WAS AMBULATING ON THE UNIT. DCPIA - Discharge Planning Initial Assessment Updated by [email or web address]: Shweta Blank on 03/21/19 12:48 pm * Is the patient Alert and Oriented? Yes * How many steps to enter\exit or inside your home? 13 steps * PCP DR CURTIS MEJIA . HAD APPT SCHEDULED FOR 03/22. SHE HAS NOTIFIED THE DR AND RESCHEDULED FOR March * Pharmacy [facility] [address] [facility] * Preadmission Environment Home with Family * ADLs Independent * Equipment Walker * Other Equipment PATIENT HAS A STANDARD WQLKER AND A ROLLATOR * List name and contact numbers for known caregivers / representatives who currently or will assist patient after discharge: EVELIAMICHI DIARolly JODIEMIGDALIA- [phone] * Verbal permission to speak to the caregivers and representatives has been obtained from the patient. Yes * Community resources currently utilized None * Additional services required to return to the preadmission environment? No * Can the patient safely return to the preadmission environment? Yes * Has this patient been hospitalized within the prior 30 days at any hospital? No Patient Name: BASILIA LAM Page 14449 at 1250 All edits/amendments must be made on the electronic document DICTATION DATE: 03/21/191249 BACKSIDE GRINDER: TIFFANIE 03/21/191249 RPT#: [id number] DC DATE: STATUS: ADM IN [facility] [address] [place] [address] END OF REPORT
--- NOTE | 2019-03-21 13:24 | MORECARE ---
CASE MANAGEMENT DISCHARGE SUMMARY PATIENT: BASILIA LAM UNIT: [id number] ADM DATE: 03/18/19 AGE: 43 : 77 SEX: F ROOM/BED: D.8587 AUTHOR: DONNIE,DOC PHYSICIAN: REFERRING PHYSICIAN: ALMA WEST MD DATE OF SERVICE: 03/21/19 Discharge Plan Patient Name: BASILIA LAM Facility: [facility]:[place] : 1975 Planned Disposition: Home Anticipated Discharge Date: Discharge Date: Expected LOS: Initial Reviewer: [email or web address] Initial Review Date: 03/17/2019 Generated: 03/21/19 2:24 pm Comments DCP- Discharge Planning Updated by [email or web address]: Shweta Blank on 03/21/19 12:[address] CM REVISITED. THE PATIENT AND HER BOYFRIEND WERE RESTING. CM EXPLAINED MY ROLE. ASK THE PATIENT IF SHE WANTED HER BOYFRIEND PRESENT FOR DISCHARGE PLANNING AND ASSESSMENT. SHE STATED "YES BECAUSE HE HELPS TAKE CARE OF ME." PATIENT LIVES AT [address] [place] [address]. SHE STATES THERE ARE MANY STEPS TO ENTER ABOUT 13 STEPS. SHE DOES NOT UTILIZE ANY HOME HEALTH SERVICES OR COMMUNITY SERVICES. SHE DOES NOT FEELS SHE ANY HOME HEALTH AT THIS TIME. SHE COMES TO OUTPATIENT THERAPY AT [facility] ON TUESDAYS AND THURSDAYS AT 1300. DME- SHE HAS A WALKER AND ROLLATOR. THERE ARE SAFETY BARS IN HER SHOWER. PHARMACY- [facility] AND [facility]. SHE ASK IF THE MEDS WOULD BE CALLED IN AT DISCHARGE. CM ADVISED THE PECAN CLEANER WOULD CALL IN MEDS IF NEEDED. SHE MAY NEED TRANSPORTATION ASSIST AT DISCHARGE. SHE WILL TAKE THE BUS BUT MAY NEED TAXI ASSISTANCE IF LATE DISCHARGE. CM ADVISED CASE MANAGEMENT IS AVAILABLE IF SHE DOES NEED ASSISTANCE. CM TO FOLLOW TO ASSIST IS APPROPRIATE. DCP- Discharge Planning Updated by [email or web address]: Shweta Blank on 03/21/19 9:[address] CM VISITED THE BEDSIDE TO INITIATE DISCHARGE PLANNING ASSESSMENT. THE PATIENT WAS NOT PRESENT IN HER ROOM. CM WILL REVISIT. THE PLATE FORMER STATED SHE WAS AMBULATING ON THE UNIT. DCPIA - Discharge Planning Initial Assessment Updated by [id number]: Shweta Blank on 03/21/19 12:48 pm * Is the patient Alert and Oriented? Yes * How many steps to enter\\exit or inside your home? 13 steps * PCP DR CURTIS MEJIA . HAD APPT SCHEDULED FOR 03/22. SHE HAS NOTIFIED THE DR AND RESCHEDULED FOR March * Pharmacy [facility] [address] [facility] * Preadmission Environment Home with Family * ADLs Independent * Equipment Walker * Other Equipment PATIENT HAS A STANDARD WQLKER AND A ROLLATOR * List name and contact numbers for known caregivers / representatives who currently or will assist patient after discharge: EVELIA JOHNSON- [phone] * Verbal permission to speak to the caregivers and representatives has been obtained from the patient. Yes * Community resources currently utilized None * Additional services required to return to the preadmission environment? No * Can the patient safely return to the preadmission environment? Yes * Has this patient been hospitalized within the prior 30 days at any hospital? No Last DP export: 03/21/19 11:50 a Patient Name: BASILIA LAM Page 43971 at 1324 All edits/amendments must be made on the electronic document DICTATION DATE: 03/21/191322 T RAIL TURNER: TIFFANIE 03/21/193 RPT#: [id number] DC DATE: STATUS: ADM IN [facility] [address] [place] [address] END OF REPORT
--- NOTE | 2019-03-21 13:47 | MORECARE ---
CASE MANAGEMENT DISCHARGE SUMMARY PATIENT: BASILIA LAM UNIT: [id number] ADM DATE: 03/18/19 AGE: 43 : 77 SEX: F ROOM/BED: D.9130 AUTHOR: DONNIE,DOC PHYSICIAN: REFERRING PHYSICIAN: ALMA WEST MD DATE OF SERVICE: 03/21/19 Discharge Plan Patient Name: BASILIA LAM Facility: [facility]:[place] : 1975 Planned Disposition: Home Anticipated Discharge Date: Discharge Date: Expected LOS: Initial Reviewer: [email or web address] Initial Review Date: 03/17/2019 Generated: 03/21/19 2:47 pm Comments DCP- Discharge Planning Updated by [email or web address]: Shweta Blank on 03/21/19 12:[address] CM REVISITED. THE PATIENT AND HER BOYFRIEND WERE RESTING. CM EXPLAINED MY ROLE. ASK THE PATIENT IF SHE WANTED HER BOYFRIEND PRESENT FOR DISCHARGE PLANNING AND ASSESSMENT. SHE STATED "YES BECAUSE HE HELPS TAKE CARE OF ME." PATIENT LIVES AT [address] [place] [address]. SHE STATES THERE ARE MANY STEPS TO ENTER ABOUT 13 STEPS. SHE DOES NOT UTILIZE ANY HOME HEALTH SERVICES OR COMMUNITY SERVICES. SHE DOES NOT FEELS SHE ANY HOME HEALTH AT THIS TIME. SHE COMES TO OUTPATIENT THERAPY AT [facility] ON TUESDAYS AND THURSDAYS AT 1300. DME- SHE HAS A WALKER AND ROLLATOR. THERE ARE SAFETY BARS IN HER SHOWER. PHARMACY- [facility] ON [facility] AND [facility]. SHE ASK IF THE MEDS WOULD BE CALLED IN AT DISCHARGE. CM ADVISED THE CIRCLE SAW OPERATOR WOULD CALL IN MEDS IF NEEDED. SHE MAY NEED TRANSPORTATION ASSIST AT DISCHARGE. SHE WILL TAKE THE BUS BUT MAY NEED TAXI ASSISTANCE IF LATE DISCHARGE. CM ADVISED CASE MANAGEMENT IS AVAILABLE IF SHE DOES NEED ASSISTANCE. CM TO FOLLOW TO ASSIST IS APPROPRIATE. DCP- Discharge Planning Updated by [id number]: Shweta Blank on 03/21/19 9:[address] CM VISITED THE BEDSIDE TO INITIATE DISCHARGE PLANNING ASSESSMENT. THE PATIENT WAS NOT PRESENT IN HER ROOM. CM WILL REVISIT. THE FLOW COORDINATOR STATED SHE WAS AMBULATING ON THE UNIT. DCPIA - Discharge Planning Initial Assessment Updated by [email or web address]: Shweta Blank on 03/21/19 12:48 pm * Is the patient Alert and Oriented? Yes * How many steps to enter\\exit or inside your home? 13 steps * PCP DR CURTIS MEJIA . HAD APPT SCHEDULED FOR 03/22. SHE HAS NOTIFIED THE DR AND RESCHEDULED FOR March * Pharmacy [facility] [address] [facility] * Preadmission Environment Home with Family * ADLs Independent * Equipment Walker * Other Equipment PATIENT HAS A STANDARD WQLKER AND A ROLLATOR * List name and contact numbers for known caregivers / representatives who currently or will assist patient after discharge: EVELIA JOHNSON- [phone] * Verbal permission to speak to the caregivers and representatives has been obtained from the patient. Yes * Community resources currently utilized None * Additional services required to return to the preadmission environment? No * Can the patient safely return to the preadmission environment? Yes * Has this patient been hospitalized within the prior 30 days at any hospital? No Last DP export: 03/21/19 12:24 p Patient Name: BASILIA LAM Page 55973 at 1347 All edits/amendments must be made on the electronic document DICTATION DATE: 03/21/191345 STUDIO DATA ANALYST: TIFFANIE 03/21/196 RPT#: [id number] DC DATE: STATUS: ADM IN [facility] [address] [place] [address] END OF REPORT
--- NOTE | 2019-03-21 14:40 | NUR ---
PATIENT STABLE AND UNCHANGED. WILL CONTINUE TO MONITOR. AT BS.
[2019-03-21] MEDS ORDERED: ELIQUIS5 MG PO (17:46)
[2019-03-21 17:47] VITALS: BP 100/64
[2019-03-21 17:56] VITALS: BP 117/78
[2019-03-21] MEDS ORDERED: LEVAQUIN750 MG PO (17:59)
--- NOTE | 2019-03-21 19:29 | MORECARE ---
CASE MANAGEMENT DISCHARGE SUMMARY PATIENT: BASILIA LAM UNIT: [id number] ADM DATE: 03/18/19 AGE: 43 : 77 SEX: F ROOM/BED: D.2920 AUTHOR: DONNIE,DOC PHYSICIAN: REFERRING PHYSICIAN: ALMA WEST MD DATE OF SERVICE: 03/21/19 Discharge Plan Patient Name: BASILIA LAM Facility: [facility]:[place] : 1975 Planned Disposition: Home Anticipated Discharge Date: Discharge Date: Expected LOS: Initial Reviewer: [id number] Initial Review Date: 03/17/2019 Generated: 03/21/19 8:29 pm Comments DCP- Discharge Planning Updated by [email or web address]: Shweta Blank on 03/21/19 6:[address] CORRECTION PATIENT HAS NO PCP. THE DOCTOR SHE HAS AN APPOINTMENT WITH IS DORCAS HARRIS MD. DCP- Discharge Planning Updated by [id number]: Shweta Blank on 03/21/19 12:[address] CM REVISITED. THE PATIENT AND HER BOYFRIEND WERE RESTING. CM EXPLAINED MY ROLE. ASK THE PATIENT IF SHE WANTED HER BOYFRIEND PRESENT FOR DISCHARGE PLANNING AND ASSESSMENT. SHE STATED "YES BECAUSE HE HELPS TAKE CARE OF ME." PATIENT LIVES AT [address] [place] [address]. SHE STATES THERE ARE MANY STEPS TO ENTER ABOUT 13 STEPS. SHE DOES NOT UTILIZE ANY HOME HEALTH SERVICES OR COMMUNITY SERVICES. SHE DOES NOT FEELS SHE ANY HOME HEALTH AT THIS TIME. SHE COMES TO OUTPATIENT THERAPY AT [facility] ON TUESDAYS AND THURSDAYS AT 1300. DME- SHE HAS A WALKER AND ROLLATOR. THERE ARE SAFETY BARS IN HER SHOWER. PHARMACY- [facility] ON [facility]. SHE ASK IF THE MEDS WOULD BE CALLED IN AT DISCHARGE. CM ADVISED THE WARP PREPARER WOULD CALL IN MEDS IF NEEDED. SHE MAY NEED TRANSPORTATION ASSIST AT DISCHARGE. SHE WILL TAKE THE BUS BUT MAY NEED TAXI ASSISTANCE IF LATE DISCHARGE. CM ADVISED CASE MANAGEMENT IS AVAILABLE IF SHE DOES NEED ASSISTANCE. CM TO FOLLOW TO ASSIST IS APPROPRIATE. DCP- Discharge Planning Updated by [email or web address]: Shweta Blank on 03/21/19 9:[address] CM VISITED THE BEDSIDE TO INITIATE DISCHARGE PLANNING ASSESSMENT. THE PATIENT WAS NOT PRESENT IN HER ROOM. CM WILL REVISIT. THE HOUSEHOLD APPLIANCE ASSEMBLER STATED SHE WAS AMBULATING ON THE UNIT. DCPIA - Discharge Planning Initial Assessment Updated by [email or web address]: Shweta Blank on 03/21/19 12:48 pm * Is the patient Alert and Oriented? Yes * How many steps to enter\\exit or inside your home? 13 steps * PCP DR CURTIS MEJIA . HAD APPT SCHEDULED FOR 03/22. SHE HAS NOTIFIED THE DR AND RESCHEDULED FOR March * Pharmacy [facility] [address] [facility] * Preadmission Environment Home with Family * ADLs Independent * Equipment Walker * Other Equipment PATIENT HAS A STANDARD WQLKER AND A ROLLATOR * List name and contact numbers for known caregivers / representatives who currently or will assist patient after discharge: EVELIA JOHNSON- [phone] * Verbal permission to speak to the caregivers and representatives has been obtained from the patient. Yes * Community resources currently utilized None * Additional services required to return to the preadmission environment? No * Can the patient safely return to the preadmission environment? Yes * Has this patient been hospitalized within the prior 30 days at any hospital? No Last DP export: 03/21/19 12:47 p Patient Name: BASILIA LAM Page 79890 at 1929 All edits/amendments must be made on the electronic document DICTATION DATE: 03/21/191927 TRUCK DRIVER SALESPERSON: TIFFANIE 03/21/191927 RPT#: [id number] [place] DATE: STATUS: ADM IN [facility] [address] [place] [address] END OF REPORT
--- NOTE | 2019-03-21 19:48 | NUR ---
PT LEFT FLOOR VIA WHEELCHAIR TO D/C HOME
--- NOTE | 2019-03-22 10:03 | MORECARE ---
CASE MANAGEMENT DISCHARGE SUMMARY PATIENT: BASILIA LAM UNIT: [id number] ADM DATE: 03/18/19 AGE: 43 : 77 SEX: F ROOM/BED: D.0845 AUTHOR: KEON FIELDS PHYSICIAN: REFERRING PHYSICIAN: ALMA WEST MD DATE OF SERVICE: 03/22/19 Discharge Plan Patient Name: BASILIA LAM Facility: [facility]:[place] : 1975 Planned Disposition: Home Anticipated Discharge Date: 03/21/19 Discharge Date: 03/21/2019 Expected LOS: 3 Initial Reviewer: [email or web address] Initial Review Date: 03/17/2019 Generated: 03/22/19 11:03 am Comments DCP- Discharge Planning Updated by [id number]: Shweta Blank on 03/21/19 6:[address] CORRECTION PATIENT HAS NO PCP. THE DOCTOR SHE HAS AN APPOINTMENT WITH IS DORCAS HARRIS MD. DCP- Discharge Planning Updated by [email or web address]: Shweta Blank on 03/21/19 12:[address] CM REVISITED. THE PATIENT AND HER BOYFRIEND WERE RESTING. CM EXPLAINED MY ROLE. ASK THE PATIENT IF SHE WANTED HER BOYFRIEND PRESENT FOR DISCHARGE PLANNING AND ASSESSMENT. SHE STATED "YES BECAUSE HE HELPS TAKE CARE OF ME." PATIENT LIVES AT [address] [place] [address]. SHE STATES THERE ARE MANY STEPS TO ENTER ABOUT 13 STEPS. SHE DOES NOT UTILIZE ANY HOME HEALTH SERVICES OR COMMUNITY SERVICES. SHE DOES NOT FEELS SHE ANY HOME HEALTH AT THIS TIME. SHE COMES TO OUTPATIENT THERAPY AT [facility] ON TUESDAYS AND THURSDAYS AT 1300. DME- SHE HAS A WALKER AND ROLLATOR. THERE ARE SAFETY BARS IN HER SHOWER. PHARMACY- [facility] ON [facility] AND [facility]. SHE ASK IF THE MEDS WOULD BE CALLED IN AT DISCHARGE. CM ADVISED THE MASTIC SPRAYER WOULD CALL IN MEDS IF NEEDED. SHE MAY NEED TRANSPORTATION ASSIST AT DISCHARGE. SHE WILL TAKE THE BUS BUT MAY NEED TAXI ASSISTANCE IF LATE DISCHARGE. CM ADVISED CASE MANAGEMENT IS AVAILABLE IF SHE DOES NEED ASSISTANCE. CM TO FOLLOW TO ASSIST IS APPROPRIATE. DCP- Discharge Planning Updated by [email or web address]: Shweta Blank on 03/21/19 9:[address] CM VISITED THE BEDSIDE TO INITIATE DISCHARGE PLANNING ASSESSMENT. THE PATIENT WAS NOT PRESENT IN HER ROOM. CM WILL REVISIT. THE BLAST FURNACE KEEPER STATED SHE WAS AMBULATING ON THE UNIT. DCPIA - Discharge Planning Initial Assessment Updated by [id number]: Shweta Blank on 03/21/19 12:48 pm * Is the patient Alert and Oriented? Yes * How many steps to enter\\exit or inside your home? 13 steps * PCP DR CURTIS MEJIA . HAD APPT SCHEDULED FOR 03/22. SHE HAS NOTIFIED THE DR AND RESCHEDULED FOR March * Pharmacy [facility] [address] [facility] * Preadmission Environment Home with Family * ADLs Independent * Equipment Walker * Other Equipment PATIENT HAS A STANDARD WQLKER AND A ROLLATOR * List name and contact numbers for known caregivers / representatives who currently or will assist patient after discharge: EVELIA JOHNSON- [phone] * Verbal permission to speak to the caregivers and representatives has been obtained from the patient. Yes * Community resources currently utilized None * Additional services required to return to the preadmission environment? No * Can the patient safely return to the preadmission environment? Yes * Has this patient been hospitalized within the prior 30 days at any hospital? No Last DP export: 03/21/19 6:29 p Patient Name: BASILIA LAM Page 43061 at 1003 All edits/amendments must be made on the electronic document DICTATION DATE: 03/22/19 1002 DIGITAL CAMPAIGN SPECIALIST: TIFFANIE 03/22/19 1002 RPT#: [id number] DC DATE:03/21/19 STATUS: DIS IN [facility] [address] [place] [address] END OF REPORT
== END 2019-03-21 19:48 | disposition home or self-care (01) | DRG 193 ==
LOC: D.ER 03:34 → D.M2 07:30 → OBSVTIME 07:30 → D.M2 07:30
PROVIDERS: Emergency Medicine; Family Medicine; ADMIT Internal Medicine Nephrology; ATTEND Internal Medicine Nephrology
DX: J18.9 Pneumonia, unspecified organism (principal); I26.99 Other pulmonary embolism without acute cor pulmonale; F17.213 Nicotine dependence, cigarettes, with withdrawal; D64.9 Anemia, unspecified; Z91.19 Patient's noncompliance with other medical treatment and regimen; E87.6 Hypokalemia

== ENCOUNTER 2019-05-16 12:59 | Emergency (ER) | payer MEDICAID ==
[~2019-05-16] VITALS: Ht 170.2 cm; Wt 59.0 kg
[~2019-05-16 12:59] MED LIST changes: +ELIQUIS5 MG PO; +LEVAQUIN750 MG PO
[2019-05-16 13:04] VITALS: Ht 170.2 cm; Wt 59.0 kg
[2019-05-16] MEDS ORDERED: ROBAXIN500 MG PO (14:35)
[2019-05-16] MEDS ORDERED: ULTRAM50 MG PO (14:35)
[2019-05-16 15:10] VITALS: BP 144/92
== END 2019-05-16 15:11 | disposition home or self-care (01) ==
LOC: D.ER 12:59
DX: M54.32 Sciatica, left side (principal); S32.019A Unspecified fracture of first lumbar vertebra, initial encounter for closed fracture; W18.30XA Fall on same level, unspecified, initial encounter; Y93.89 Activity, other specified; Y92.89 Other specified places as the place of occurrence of the external cause

== ENCOUNTER → 2021-01-23 12:27 | Outpatient (CLI) | payer MEDICAID ==
[2019-05-16 13:04] VITALS: BMI 20.3
[~2021-01-23 12:27] MED LIST changes: +ULTRAM50 MG PO
== END | disposition home or self-care (01) ==
LOC: D.RAD 12:27
DX: M25.562 Pain in left knee (principal); M25.561 Pain in right knee